=== PATIENT | male | born 1955 | race Caucasian/White ===

== ENCOUNTER 2017-01-30 20:23 | Emergency (ER) | payer OTHER ==
[2017-01-30] MEDS ORDERED: Bacitracin Oint 1 GM U/D Packet TOP ONE (20:49)
[2017-01-30] MEDS ORDERED: Lidocaine 1% with EPINEPHrine 1:100,000 50 ML MDV INFILT ONE (20:49)
--- NOTE | 2017-01-30 21:28 | EDM.PDOC ---
ED HPI GENERAL MEDICAL PROBLEM - General Stated Complaint: CUT HAND Time Seen by Provider: 01/30/17 20:55 Source of Information: Reports: Patient, Family History Limitations: Reports: No Limitations - History of Present Illness INITIAL COMMENTS - FREE TEXT/NARRATIVE: 61-year-old male was cleaning a deer when he struck his left hand with a bone saw sustaining a laceration to the proximal aspect of the dorsal thumb and hand. He has a transverse laceration just proximal to the MP joint of the left thumb. He has full range of motion and no distal numbness. Onset: Sudden Duration: Hour(s): (Within the last hour) Location: Reports: Upper Extremity, Left - Related Data Allergies Allergy/AdvReac Type Severity Reaction Status Date / Time atorvastatin [From Lipitor] Allergy Difficulty Verified 01/30/17 20:48 Breathing Home Meds: Home Meds ALPRAZolam [Xanax] 01/30/17 [History] Flecainide [Tambocor] 01/30/17 [History] Ibuprofen [Motrin] 01/30/17 [History] Lovastatin 01/30/17 [History] Omeprazole Magnesium [Prilosec Otc] 01/30/17 [History] Past Medical History Cardiovascular History: Reports: Afib, High Cholesterol, Hypertension Musculoskeletal History: Reports: Arthritis, Neck Pain, Chronic - Past Surgical History HEENT Surgical History: Reports: Naso-Sinus Surgery Social & Family History - Tobacco Use Smoking Status *Q: Never Smoker Review of Systems - Review of Systems Review Of Systems: See Below Constitutional: Denies: Fever Respiratory: Denies: Shortness of Breath GI/Abdominal: Denies: Nausea, Vomiting Neurological: Reports: Paresthesia (Has chronic paresthesias of the right hand from a neck injury) ED EXAM, GENERAL - Physical Exam Exam: See Below Exam Limited By: No Limitations General Appearance: Alert, No Apparent Distress Respiratory/Chest: No Respiratory Distress Extremities: Other (Exam is otherwise limited to the left hand. The patient has a 3.5 cm transverse laceration across the dorsal aspect of the hand just proximal to the MP joint of the thumb. Distal CMS is intact.) Course - Vital Signs Last Recorded V/S: Last Vital Signs Temp 98.2 F 01/30/17 20:58 Pulse 83 01/30/17 20:58 Resp 18 01/30/17 20:58 BP 133/79 01/30/17 20:58 Pulse Ox 95 01/30/17 20:58 - Orders/Labs/Meds Meds: Medications Discontinued Medications Generic Name Dose Route Start Last Admin Trade Name Nancy PRN Reason Stop Dose Admin Bacitracin 1 dose 01/30/17 20:49 01/30/17 21:04 Bacitracin Oint 1 Gm TOP 01/30/17 20:50 1 dose ONETIME ONE Administration Lidocaine/Epinephrine 30 ml 01/30/17 20:49 01/30/17 21:04 Xylocaine 1% With Epinephrine 1:100,000 INFILT 01/30/17 20:50 30 ml ONETIME ONE Administration - Re-Assessments/Exams Free Text/Narrative Re-Assessment/Exam: 01/30/17 21:26 The laceration was anesthetized with 1% lidocaine with epinephrine. It was cleansed thoroughly with saline. Because of the depth of the laceration 5 vertical mattress sutures were used to close the laceration, along with 1 simple suture at the edge of the wound. These can be removed in 9 days, next Wednesday. He is to keep the wound covered and clean while healing and recheck if concerns of infection. Departure - Departure Time of Disposition: 21:45 Disposition: Home, Self-Care 01 Condition: Good Clinical Impression: Laceration of hand Qualifiers: Encounter type: initial encounter Foreign body presence: without foreign body Laterality: left Qualified Code(s): S61.412A - Laceration without foreign body of left hand, initial encounter - Discharge Information Instructions: Laceration Care, Adult, [id number] Referrals: PCP,None [Primary Care Provider] - Forms: ED Department Discharge Care Plan Goals: Keep the wound covered and clean while healing. Sutures can be removed in 9 days , next Wednesday. Recheck sooner if concerns of infection or not healing satisfactorily.
== END 2017-01-30 21:45 | disposition home or self-care (01) ==
LOC: JP.ED 20:23
DX: S61.412A Laceration without foreign body of left hand, initial encounter (principal); Z88.8 Allergy status to other drugs, medicaments and biological substances
CPT/HCPCS: 12002; 99283-25